=== PATIENT | female | born 1990 | race Two or more races ===

== ENCOUNTER → 2016-04-25 | Outpatient (CLI) | payer OTHER ==
--- NOTE | 2016-04-26 12:12 | XCELERA REPORT ---
[address] [address] Lower Extremity Arterial Evaluation Name: SILVIO SANDERS Age: 26 yrs Gender: Female : 1990 Patient Status: Preadmit Patient Location: Study Date: 04/25/2016 02:10 PM Procedure: A color flow and duplex scan of the lower extremity arteries was performed bilaterally with velocity and waveform anaylsis. Reason For Study: CLAUDICATION Ordering Physician: PIA JOVEL Performed By: Javier Medrano Measurements and Calculations Right Left SENIOR SQL DBA PSV 131.8 142.4 cm/sec Prox PFA PSV -73.1 -128.3 cm/sec Dist SFA PSV -151.0 -176.4 cm/sec Prox Pop A PSV 83.3 99.8 cm/sec Dist ADELAIDA PSV 64.0 72.8 cm/sec Dist ELECTRICAL JOURNEYMAN PSV 62.5 63.4 cm/sec Osnny Pedis PSV 79.8 64.2 cm/sec Right Side Arterial Evaluation Normal velocity, waveform and triphasic flow are present, from the Common Femoral artery down to the Anterior and Posterior Tibial arteries. Biphasic in the Dorsalis Pedis. and Deep Femoral artery. The ankle-brachial index is 1.12. 0-19 % stenosis is noted at the Dorsalis Pedis and Deep Femoral arteries. Left Side Arterial Evaluation Normal velocity, waveform and triphasic flow are present, from the Common Femoral artery down to the infrageniculate vessels. The ankle-brachial index is 1.16. 0 % stenosis noted . Interpretation Summary Mild hemodynamically significant lesions in the right lower extremity only, on duplex imaging, at rest. No hemodynamically significant lesions in the left lower extremity only, on duplex imaging, at rest. : PIA JOVEL > Rod Santos
== END ==
LOC: SP 14:00
PROVIDERS: ATTEND Family Medicine
DX: I70.203 Unspecified atherosclerosis of native arteries of extremities, bilateral legs (principal)
CPT/HCPCS: 93925